=== PATIENT | female | born 1990 | race Caucasian/White ===

== ENCOUNTER 2017-09-04 18:34 | Emergency (ER) | payer MEDICAID | END 2017-09-04 20:20 | disposition home or self-care (01) | LOC: E/R 18:34 | DX: S39.012A Strain of muscle, fascia and tendon of lower back, initial encounter (principal); S16.1XXA Strain of muscle, fascia and tendon at neck level, initial encounter; V89.2XXA Person injured in unspecified motor-vehicle accident, traffic, initial encounter | CPT/HCPCS: 99283; Z7502 ==

== ENCOUNTER 2017-09-11 07:48 | Emergency (ER) | payer MEDICAID | END 2017-09-11 09:59 | disposition home or self-care (01) | LOC: FTE 07:48 | DX: S06.0X0A Concussion without loss of consciousness, initial encounter (principal); R51 Headache; R07.9 Chest pain, unspecified; V49.40XA Driver injured in collision with unspecified motor vehicles in traffic accident, initial encounter | CPT/HCPCS: 70450; 71045; 81025; 99284-25 ==

== ENCOUNTER 2017-09-23 14:21 | Emergency (ER) | payer MEDICAID ==
[2017-09-23] MEDS: IBUPROFEN 200 MG TAB PO (16:53)
== END 2017-09-23 16:57 | disposition home or self-care (01) ==
LOC: FTE 14:21
DX: R22.43 Localized swelling, mass and lump, lower limb, bilateral (principal)
CPT/HCPCS: 99283; Z7502

== ENCOUNTER 2018-08-31 21:35 | Emergency (ER) | payer MEDICAID ==
[2018-09-01] MEDS: ACETAMINOPHEN 500 MG TAB PO (00:47)
[2018-09-01] MEDS: KETOROLAC 60 MG INJ IM (01:13)
== END 2018-09-01 03:17 | disposition home or self-care (01) ==
LOC: FTE 21:35
DX: S89.91XA Unspecified injury of right lower leg, initial encounter (principal); M25.461 Effusion, right knee; X58.XXXA Exposure to other specified factors, initial encounter; Y92.9 Unspecified place or not applicable
CPT/HCPCS: 36415; 73562; 81025; 96372; 99284-25

== ENCOUNTER 2018-10-28 23:43 | Emergency (ER) | payer MEDICAID ==
[2018-10-29] MEDS: IBUPROFEN 600 MG TAB PO (03:30)
== END 2018-10-29 05:42 | disposition home or self-care (01) ==
LOC: FTE 23:43
DX: S99.912A Unspecified injury of left ankle, initial encounter (principal); X50.1XXA Overexertion from prolonged static or awkward postures, initial encounter; Y92.9 Unspecified place or not applicable
CPT/HCPCS: 73610; 81025; 99283-25